=== PATIENT | male | born 1955 | race Caucasian/White ===

== ENCOUNTER 2022-09-21 10:50 | Outpatient (CLI) | payer MEDICARE ==
[2022-09-21 13:21] LABS: Anion Gap 13 mmol/L (10-20); BUN (Urea Nitrogen) 22 mg/dL (8.4-25.7); Calc. Creatinine Clearance 0 mL/min (70-130); Calcium 9.2 mg/dL (7.8-10.44); Carbon Dioxide 27 mmol/L (23-31); Chloride 101 mmol/L (98-107); Estimated GFR 100; Glucose 108 mg/dL (80-115); Potassium 4.4 mmol/L (3.5-5.1); Sodium 137 mmol/L (136-145)
== END 2022-09-21 10:51 | disposition home or self-care (01) ==
LOC: CSHLAB 10:50
PROVIDERS: ATTEND Otolaryngology Otolaryngic Allergy
DX: Z01.818 Encounter for other preprocedural examination (principal); H61.23 Impacted cerumen, bilateral; C09.9 Malignant neoplasm of tonsil, unspecified
CPT/HCPCS: 80048; 85014; 85018; 93005; 93010

== ENCOUNTER 2022-09-26 09:29 | Day surgery (SDC) | payer MEDICARE ==
[2022-09-21 11:40] VITALS: BMI 17.9
[~2022-09-26 09:29] MED LIST: SUGAMMADEX SODIUM 200 MG/2 ML VIAL ONE
[2022-09-26] MEDS ORDERED: PROPOFOL 20 ML ONE (10:44)
[2022-09-26] MEDS ORDERED: fentaNYL 50 mcg/mL 1 mL Vial ONE (10:44)
[2022-09-26] MEDS ORDERED: Midazolam HCl 2 mg/2 ml Vial ONE (10:44)
[2022-09-26] MEDS ORDERED: Ondansetron PF 4 MG/2 ML Vial ONE (10:45)
[2022-09-26] MEDS ORDERED: Rocuronium Bromide 10 MG/ML (10ML VIAL) ONE (10:45)
[2022-09-26] MEDS ORDERED: Dexamethasone 20 MG/5 ML VIAL ONE (10:45)
[2022-09-26] MEDS ORDERED: Famotidine/PF 20 mg/2ml Vial ONE (11:10)
[2022-09-26] MEDS ORDERED: EPINEPHrine 1 MG/ML AMP ONE (11:10)
[2022-09-26] MEDS ORDERED: Labetalol HCl 100 MG/20 ML VIAL ONE (11:59)
[2022-09-26] MEDS ORDERED: Hydrocodone-Acetamin 15 ML UDCUP ONE (13:29)
== END 2022-09-26 14:05 | disposition home or self-care (01) ==
LOC: CSHSDC 09:29
PROVIDERS: ATTEND Otolaryngology Otolaryngic Allergy
PROC: 0CBM8ZX Excision of Pharynx, Via Natural or Artificial Opening Endoscopic, Diagnostic (ICD-10-PCS; principal; 2022-09-26)
DX: K12.1 Other forms of stomatitis (principal); I96 Gangrene, not elsewhere classified; F17.200 Nicotine dependence, unspecified, uncomplicated
CPT/HCPCS: 31535; J3010; 88305; 88331; J0171; J1100; J2250; J2405; J2704; S0028